=== PATIENT | female | born 1995 | race Hispanic/Latino ===

== ENCOUNTER 2019-01-04 19:50 | Emergency (ER) | payer SELFPAY ==
[~2019-01-04] VITALS: Ht 162.6 cm; Wt 61.2 kg
[2019-01-04] MEDS ORDERED: TRI-LO-MARZIA1 EACH PO (20:06)
[2019-01-04] MEDS ORDERED: PROTONIX40 MG PO (22:12)
[2019-01-04] MEDS ORDERED: ZOFRAN4 MG PO (22:12)
--- NOTE | 2019-01-05 15:04 | EKG ---
[facility] [address] [facility] [place], [place] [address] Signed Normal sinus rhythm Normal ECG No previous ECGs available Confirmed by MANSOOR HILL DO ([id number]) on 01/05/2019 3:04:29 PM Electronically Signed By: MANSOOR HILL DO 01/05/19 1504 PATIENT NAME: VASHTIROBIBETH Electrocardiogram DATE OF : [birth year] PHYSICIAN: MANSOOR HILL DO REPORT #: [id number] REPORT IS CONFIDENTIAL AND NOT TO BE RELEASED WITHOUT AUTHORIZATION
== END 2019-01-04 22:36 | disposition home or self-care (01) ==
LOC: ED 19:50
DX: R10.13 Epigastric pain (principal); D50.9 Iron deficiency anemia, unspecified
CPT/HCPCS: 80053; 81001; 83690; 84703; 85025; 85027; 93005; 93010; 96374; 96375; 99284-25; J1170; J2405

== ENCOUNTER 2019-01-09 09:56 | Observation (INO) | payer BC ==
[~2019-01-09] VITALS: Ht 162.6 cm; Wt 63.5 kg
[~2019-01-09 09:56] MED LIST: PROTONIX40 MG PO; TRI-LO-MARZIA1 EACH PO; ZOFRAN4 MG PO
--- OUTSIDE RECORDS SUMMARY | 2019-01-09 10:00 | XMS ---
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 Candida has no Care Guidelines for this patient. Juan VISIT COUNT (12 MO[address] [facility] [place] [facility]. TOTAL 2 NOTE: Visits indicate total known visits. ED/C VISIT TRACKING (12 MO.) 01/09/2019 09:57 [facility] [place] TYPE: Emergency COMPLAINT: - CHEST PAIN 01/04/2019 19:[address] [facility] [place] TYPE: Emergency COMPLAINT: - CHEST PRESSURE DIAGNOSES: - Iron deficiency anemia, unspecified - Epigastric pain INPATIENT VISIT TRACKING (12 MO.) No inpatient visits to display in this time frame [email or web address]
--- NOTE | 2019-01-09 13:00 | NUR ---
PT ARRIVED TO ROOM 114 AT THIS TIME, PT ALERT AND ORIENTED, PT RELAXED IN BED TALKING WITH BOYFRIEND AT BEDSIDE. PT UP TO BATHROOM INDEPENTENTLY.
--- NOTE | 2019-01-09 13:46 | NUR ---
pt reports no nausea and pain is well managed at this time, per pt no need for pain medication at this time, laying in bed on left side visiting with boyfriend and watching video on phone.
--- NOTE | 2019-01-09 13:58 | EKG ---
[facility] [address] [facility] [place] [address] Signed Normal sinus rhythm Confirmed by MANSOOR HILL DO ([id number]) on 01/09/2019 1:58:12 PM Electronically Signed By: MANSOOR HILL DO 01/09/19 1358 PATIENT NAME: JASSIROB HERZOG Electrocardiogram DATE OF : [birth year] PHYSICIAN: MANSOOR HILL DO REPORT #: [id number] REPORT IS CONFIDENTIAL AND NOT TO BE RELEASED WITHOUT AUTHORIZATION
--- NOTE | 2019-01-09 14:10 | NUR ---
ASSISTED PT TO BATHROOM AND DID ASSESSMENT. PT RATES PAIN MINIMALLY. STATES SHE STARTED TO FEEL BETTER IN THE ED. ASSESSMENT BENIGN.
--- NOTE | 2019-01-09 15:23 | NUR ---
CALLED TO REPORT THAT PT HAS CHRONIC LOW IRON ANEMIA AND HAS AN H/H OF 7.0/24.5, SAID TO HAVE TWO UNITS CROSS MATCHED AND ON HOLD FOR SURGERY.
--- NOTE | 2019-01-09 18:04 | NUR ---
PT OFF FLOOR WITH RN KALPANA FOR SURGERY. BOYFRIEND STAYING IN ROOM.
--- NOTE | 2019-01-09 18:09 | CONS ---
[facility] [address] [place], [place] [address] Signed DATE OF CONSULTATION: 01/09/2019 REFERRING PHYSICIAN: Dr. Orta. CHIEF COMPLAINT: Right upper quadrant abdominal pain/epigastric abdominal pain. HISTORY OF PRESENT ILLNESS: Rob is a 23-year-old female, otherwise healthy, except for chronic anemia for at least two years. She said her periods were quite irregular, but she went on control two years ago and it is much better. She tried iron tablets for a while, but she was noncompliant. 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 She is able to walk, talk, participate in activity and so forth and never gets tired or short of breath. However, the last week or so. She has had at least two attacks of significant right upper quadrant epigastric abdominal pain radiating through to her back. She came to emergency room about five days ago and was allowed to go home. No imaging was done previously. Today when she came, her blood work looks fine and her beta HCG is negative. So she consequently had an ultrasound of the gallbladder done and there was sludge with probably some tiny stones in the common bile duct which was unremarkable. No gallbladder wall thickening, no pericholecystic fluid. I was asked to admit her as a general surgeon on-call. In the meantime, she is doing fine. PAST MEDICAL HISTORY: Chronic iron deficiency anemia for two years, associated with irregular menses. PAST SURGICAL HISTORY: None. SOCIAL HISTORY: She does not smoke or drink. Her mother, at [phone]. She sees Anthony Gandhi at [facility]. 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 FAMILY HISTORY: All healthy. REVIEW OF SYSTEMS: Ten systems reviewed, nothing new to add. ALLERGIES: None. MEDICATIONS: Electronically Signed By: CY REEDER MD 01/09/19 1939 PATIENT NAME: ROB KINGSTON CONSULTATION DATE OF : [birth year] REPORT #: [id number] PHYSICIAN: CY REEDER MD PCP: NO PRIMARY CARE PHYSICIAN REPORT IS CONFIDENTIAL AND NOT TO BE RELEASED WITHOUT AUTHORIZATION [facility] [address] [place], [place] [address] Signed Protonix, Zofran, and oral contraceptive pill. PHYSICAL EXAMINATION: VITAL SIGNS: Her blood pressure 122/67, heart rate 77, respiratory rate 16, temperature 97.6. She is 99% on room air. She is 5 feet 4 inches, 63 kg. GENERAL: Rob is a 23-year-old female lying supine in her hospital bed. She appears healthy and at her stated age. Her boyfriend is in the room. She does not appear systemically ill or toxic. She is not jaundiced. LUNGS: Generally clear to auscultation bilaterally. HEART: Regular rate and rhythm. ABDOMEN: Soft and nontender at this time. LABORATORY DATA: Her white blood cell count is 5.6, hemoglobin 7.0, mean cell volume 65, neutrophils 70. BUN 8, creatinine 0.48. EKG shows some sinus arrhythmias. The beta-HCG is negative. Total bilirubin 0.5, AST 18, ALT 19, alkaline phosphatase 66, lipase 7, albumin is 4.3. RADIOGRAPHIC STUDIES: Ultrasound of the gallbladder was performed and it shows some sludge and probably some tiny stones but an unremarkable common bile duct. No pericholecystic fluid. No gallbladder wall thickening. ASSESSMENT AND PLAN: Rob is a 23-year-old female, who presents with sludge in the gallbladder, probably some stones and a classic biliary colic. She has been admitted given IV fluids. I met with her and explained her the above findings. We reviewed the location and function of the gallbladder. We reviewed laparoscopic versus open cholecystectomy. They understand expected intraop and postop course. We did review the risks including, but not limited to bleeding, infection, scarring, change in contour of the skin, damage to bowel, damage to main bile duct, and incisional hernias. In the meantime, we will give her some antibiotics and heparin. Will be headed to the OR shortly. They have expressed understanding and would like to proceed. yC Reeder MD ALB/MODL /[id number] Electronically Signed By: CY REEDER MD 01/09/19 1809 PATIENT NAME: ROB KINGSTON CONSULTATION DATE OF : [birth year] REPORT #: [id number] PHYSICIAN: CY REEDER MD PCP: NO PRIMARY CARE PHYSICIAN REPORT IS CONFIDENTIAL AND NOT TO BE RELEASED WITHOUT AUTHORIZATION [address] [address] Signed cc: CLARITA Arizmendi MD Copies: ANTHONY GANDHI ANDREW L MD ~ Electronically Signed By: CY REEDER MD 01/09/19 1809 PATIENT NAME: ROB KINGSTON ELLE CONSULTATION DATE OF : [birth year] REPORT #: [id number] PHYSICIAN: CY REEDER MD PCP: NO PRIMARY CARE PHYSICIAN REPORT IS CONFIDENTIAL AND NOT TO BE RELEASED WITHOUT AUTHORIZATION
--- NOTE | 2019-01-09 18:13 | NUR ---
PT FELT BETTER AFTER BOLUS IN ED. NO PRN MEDICATIONS GIVEN ON FLOOR. INDEPENDENT IN ROOM.
--- NOTE | 2019-01-09 19:26 | NUR ---
01/09/191925 Cristin Gutierrez 1918 PT ARRIVED TO PACU ON 10L VIA MASK, PT NONAROUSABLE TO PAINFUL STIMULI. PT HAS ORAL AIRWAY IN PLACE, RESP EVEN AND UNLABORED.
--- NOTE | 2019-01-09 20:14 | NUR ---
PT RETURNED FROM PACU, SLEEPY BUT WAKES EASILY. REQUIRED STAFF TO PULL HER OVER TO BED FROM STRETCHER, BUT ONCE IN BED, SHE REQUESTED TO GET UP AND USE BATHROOM. REQUIRED SOME ASSISTANCE GETTING UP BUT AMBULATED TO BATHROOM WITH SBA. COMPLAINS OF DISCOMFORT IN SURGERY SITE. AMBULATED BACK TO BED INDEPENDENTLY. MALE FRIEND IN ROOM.
--- NOTE | 2019-01-09 20:25 | NUR ---
PT TO FLOOR FROM PACU VIA STRETCHER. PT DROWSY BUT AWAKENS EASILY. REPORT RECEIVED FROM PACU NURSE. ASSESSMENT COMPLETE. PT DENIES PAIN OR NAUSEA. SURVEY RESEARCH CENTER DIRECTOR IN ROOM. CALL LIGHT IN REACH.
--- NOTE | 2019-01-09 21:40 | NUR ---
PATIENTS POST-OP VITALS TAKEN AND RECORDED. PATIEN DENIES ANY PAIN OR NAUSEA. PATIENT DENIES ANY NEEDS. FAMILY REMAINS IN THE ROOM.
--- NOTE | 2019-01-09 22:05 | NUR ---
PT CALLED NEEDED TO USE BATHROOM. ASSISTED UP, AMBULATED SELF, DENIES NAUSEA, ABLE TO GET SELF BACK INTO BED. FAMILY IN ROOM.
--- NOTE | 2019-01-09 22:44 | NUR ---
PT RESTING IN BED WITH EYES CLOSED. SLEEPY BUT AWAKENS EASILY. POST-OP VS DONE. PT DENIES PAIN OR NAUSEA. SIGNIFICANT OTHER IN THE ROOM. CALL LIGHT IN REACH.
--- NOTE | 2019-01-10 00:09 | NUR ---
PT UP TO BR WITH SBA TO VOID 550 ML CLEAR YELLOW URINE. PT BACK TO BED. ICE PACK TO ABD. PT DENIES PAIN OR NAUSEA. SCOPE SITES CDI. PT EATING JELLO. NO OTHER REQUESTS AT THIS TIME. CALL LIGHT IN REACH.
--- NOTE | 2019-01-10 02:20 | NUR ---
PT UP TO BR WITH MINIMAL ASSIST. PT C/O WORSENING PAIN WITH MOVEMENT AND AMBULATION. PRN PAIN MEDICATION AND CRACKERS GIVEN FOR C/O 8/10 ABDOMINAL PAIN. ASSESSMENT COMPETE. SIGNIGICANT OTHER IN THE ROOM. CALL LIGHT IN REACH.
--- NOTE | 2019-01-10 05:00 | NUR ---
PT RESTING IN BED WITH EYES CLOSED. RR EVEN AND UNLABORED. SCD'S IN PLACE. CALL LIGHT IN REACH.
--- NOTE | 2019-01-10 05:46 | NUR ---
PT RESTED WELL THROUGHOUT THE SHIFT. SCOPE SITES CDI, ICE PACK TO LOWER ABDOMEN. PT REPORTS MINIMAL PAIN, STATES PAIN INCREASES WITH AMBULATION. MEDICATED ONCE WITH PO PAIN MED. EMPERATRIZ CRACKERS AND JELL-O WITH NO C/O NAUSEA. VOIDING QUANTITY SUFFICIENT.
--- NOTE | 2019-01-10 06:05 | OR ---
[facility] [address] [place], [place] [address] Signed DATE OF OPERATION: 01/09/2019 SURGEON: Cy Reeder MD PREOPERATIVE DIAGNOSES: 1. Cholecystitis, cholelithiasis and sludge. 2. Biliary colic. POSTOPERATIVE DIAGNOSES: 1. Acute cholecystitis, cholelithiasis and sludge. 2. Biliary colic. PROCEDURE PERFORMED: Laparoscopic cholecystectomy without intraoperative cholangiogram. ESTIMATED BLOOD LOSS: None. FINDINGS: Rob had 8 small 2-3 mm clear colored gallstones, one of which was stuck in the cystic duct next to the gallbladder and it was easily taken out. We were unable to pass the intraoperative cholangiocatheter through the valves of Stokes and therefore the intraoperative cholangiogram was abandoned. INDICATIONS: Rob is a 23-year-old female, otherwise healthy except she has had anemia for at least two years. She was having trouble with her monthly cycles and ended up on control. She said it is much better. However, she has remained anemic with a hemoglobin of 7. They had given her some iron pills, but she was never very compliant. She came to our ER twice in the last five days with significant epigastric abdominal pain radiating through to her back. Vital signs were fine and her laboratory work was fine, but the ultrasound showed sludge and some tiny stones in the gallbladder. The common bile duct was unremarkable. I was therefore asked to admit her as a general surgeon on-call. In the meantime, she has received IV fluids, antibiotics, heparin, and pain control. I met with Rob and her boyfriend here in the hospital. We reviewed the above findings. I explained to them the location and function of the gallbladder. We had reviewed laparoscopic versus open cholecystectomy. They understand there is risk to surgery including, but not limited to bleeding, infection, scarring, change in contour of the skin, damage to bowel, damage to main bile duct, and incisional hernias. I also explained that of all patients who come to us with gallstones that 3% to 7% will Electronically Signed By: CY REEDER MD 01/10/19 0605 PATIENT NAME: ROB KINGSTON OPERATIVE REPORT DATE OF : [birth year] REPORT #: [id number] PHYSICIAN: CY REEDER MD PCP: NO PRIMARY CARE PHYSICIAN REPORT IS CONFIDENTIAL AND NOT TO BE RELEASED WITHOUT AUTHORIZATION [facility] [address] [place], [place] [address] Signed have stones down in the main bile duct. They had expressed understanding and wished to proceed. PROCEDURE NOTE: Rob was taken into the operating room and placed in the supine position under general endotracheal tube anesthesia. She was given her preoperative antibiotics along with subcutaneous heparin. SCDs were utilized. She was then prepped and draped in the usual sterile fashion. We used a standard vertical midline infraumbilical incision and carried it down through bluntly and with the cautery. The Kary trocar was placed under direct visualization without difficulty. The abdomen was insufflated and the camera was introduced. The remaining trocars were then placed under direct visualization without difficulty. The gallbladder was grasped and elevated into the right upper quadrant. Pictures were taken throughout for photodocumentation. We could immediately see that the gallbladder wall was a bit thickened and edematous. The triangle of Calot was dissected free and a clip was placed on the cystic artery and it was divided. We opened the neck of the gallbladder as it joined the cystic duct. One small stone had been brought out. We milked the cystic duct and no additional stones were palpated or obtained. We could not pass our intraoperative cholangiocatheter through the valves of Stokes. Therefore, we abandoned the intraoperative cholangiogram. The cystic duct stump was secured with a PDS Endoloop and 2 clips were placed on the cystic duct stump to arnaldo its location. After this, the gallbladder was removed from the gallbladder fossa with the help of the cautery. There was a moderate amount of edema as we worked our way through. The gallbladder was then placed into an EndoCatch bag. The right upper quadrant was irrigated and suctioned out until clear. We used our laparoscopic suturing device to pass 0 Vicryl suture on either side of the fascia of the subxiphoid trocar site. This was tied down to close this fascia primarily. After this, the gas was allowed to escape and all the trocars were removed along with the gallbladder. The gallbladder was opened on the back table by our circulating nurse. She had 8 small 2 to 3 mm clear gallstones. The fluid in the gallbladder had been clear as well. She had an obstruction right at the neck of the gallbladder joining the cystic duct. The gallbladder wall was clearly thickened and edematous. After this, we closed the infraumbilical trocar site fascia with interrupted simple and [id number] 0 Vicryl sutures. Local anesthetic was copiously injected into all trocar sites. Each trocar site was irrigated and suctioned out until clear. The skin and dermis of each trocar site were closed with interrupted 3-0 subcuticular Monocryl sutures. Dry gauze and tape were applied to all incisions. After this, Rob was awakened from her anesthesia, extubated in the OR, and taken to recovery room in stable condition. Cy Reeder MD Electronically Signed By: CY REEDER MD 01/10/19 0605 PATIENT NAME: ROB KINGSTON OPERATIVE REPORT DATE OF : [birth year] REPORT #: [id number] PHYSICIAN: CY REEDER MD PCP: NO PRIMARY CARE PHYSICIAN REPORT IS CONFIDENTIAL AND NOT TO BE RELEASED WITHOUT AUTHORIZATION [address] [place] [address] Signed ALB/MODL /[id number] cc: CLARITA Arizmendi MD Copies: ANTHONY GANDHI ANDREW L MD ~ Electronically Signed By: CY REEDER MD 01/10/19 0605 PATIENT NAME: ROB KINGSTON OPERATIVE REPORT DATE OF : [birth year] REPORT #: [id number] PHYSICIAN: CY REEDER MD PCP: NO PRIMARY CARE PHYSICIAN REPORT IS CONFIDENTIAL AND NOT TO BE RELEASED WITHOUT AUTHORIZATION
--- NOTE | 2019-01-10 07:25 | NUR ---
PATIENT IS NOW SL PER MD ORDER.
--- NOTE | 2019-01-10 07:30 | NUR ---
REPORT RECEIVED FROM TESHA CORCORAN. PT APPEARS TO BE ASLEEP AND REPORTEDLY HAD A GOOD NIGHT. BOYFRIEND ON COUCH.
--- NOTE | 2019-01-10 08:08 | NUR ---
PATIENT IN BED RESTING WITH EYES CLOSED. CALL LIGHT IN REACH. NO FURTHER NEEDS AT THIS TIME.
[2019-01-10] MEDS ORDERED: NORCO 5-325 TA1 EACH PO (09:19)
--- NOTE | 2019-01-10 09:40 | NUR ---
PT AWAKE AND ASKING FOR SOUP. STATES THAT HER PAIN IS MINIMAL AND ONLY WANTS ONE NORCO. TALKED ABOUT JUST TAKING TYLENOL AT HOME IF THAT IS WHAT SHE WANTS BUT NOT WITH THE NORCO. GIVEN SOUP AND TOLD THAT SHE CAN GET DRESSED AT HER [facility].
--- NOTE | 2019-01-10 09:40 | NUR ---
MED REC COMPLETE
[2019-01-10] MEDS ORDERED: TYLENOL325 MG PO (09:41)
[2019-01-10] MEDS ORDERED: ADVIL200 MG PO (09:42)
[2019-01-10] MEDS ORDERED: ALEVE220 MG PO (09:42)
--- NOTE | 2019-01-10 10:05 | NUR ---
PATIENT IN BED RESTING, VISITOR IN ROOM. CALL LIGHT IN REACH. TOOTH BRUSH AND TOOTH PSTE PROVIDED. NO FURTHER NEEDS AT THIS TIME.
--- NOTE | 2019-01-10 10:49 | NUR ---
pt education provided. pt has decided she would like the second norco before leaving as riding in the car is painful.
== END 2019-01-10 11:36 | disposition home or self-care (01) ==
LOC: ED 09:56 → MS 09:58
PROVIDERS: ADMIT Colon & Rectal Surgery
PROC: 0FT44ZZ Resection of Gallbladder, Percutaneous Endoscopic Approach (ICD-10-PCS; principal; 2019-01-09 17:30)
DX: K80.12 Calculus of gallbladder with acute and chronic cholecystitis without obstruction (principal); D50.9 Iron deficiency anemia, unspecified; Z79.3 Long term (current) use of hormonal contraceptives; Z79.899 Other long term (current) drug therapy
CPT/HCPCS: 00790; 36415; 76705; 80053; 83690; 84703; 85025; 86850; 86900; 86901; 86920; 93005; 93010; 94760; 96361; 96372; 96374; 96375; 96376; 99285-25; G0378; J0330; J0696; J1100; J1170; J1644; J1885; J2250; J2405; J2704; J2765; J3010; J7030; J7120

== ENCOUNTER 2019-06-18 04:28 | Emergency (ER) | payer BC ==
[~2019-06-18] VITALS: Ht 162.6 cm; Wt 59.0 kg
[~2019-06-18 04:28] MED LIST changes: +ADVIL200 MG PO; +ALEVE220 MG PO; +NORCO 5-325 TA1 EACH PO; +TYLENOL325 MG PO
[2019-06-18] MEDS ORDERED: PROTONIX40 MG PO (06:07)
== END 2019-06-18 06:17 | disposition home or self-care (01) ==
LOC: ED 04:28
DX: K29.00 Acute gastritis without bleeding (principal); Z79.899 Other long term (current) drug therapy
CPT/HCPCS: 80053; 81001; 83690; 84703; 85025; 99284

== ENCOUNTER 2024-06-30 00:51 | Inpatient (IN) | payer BC ==
[2024-06-30] MEDS ORDERED: MAGNESIUM HYDROXIDE/AL HYDROX 30 ML CUP PO PRN ×2 (01:00→21:45)
[2024-06-30] MEDS ORDERED: LACTATED RINGER'S 1,000 ML IV SCH (01:00)
[2024-06-30] MEDS ORDERED: OXYTOCIN/DEXTROSE 5% 20 UNITS/100 ML BAG IV SCH (01:00)
[2024-06-30] MEDS ORDERED: miSOPROStoL 25 MCG TAB PV SCH (01:00)
[2024-06-30] MEDS ORDERED: LACTATED RINGER'S 1,000 ML IV PRN (01:00)
[2024-06-30] MEDS ORDERED: CALCIUM CARBONATE 500 MG CHEW PO PRN ×2 (01:00→21:45)
[2024-06-30 01:29] LABS: HEMATOCRIT 30.9 % (35.0-50.0); MCH 24.6 (27-36); MCHC 32.3 g/dl (30-36); MCV 76.3 fl (81-99); RBC 4.05 M/ul (4.3-5.7); RDW 18.1 (10.5-15.0)
[2024-06-30 01:46] LABS: AMPHETAMINES, URINE NEGATIVE (NEGATIVE); BARBITURATES, URINE NEGATIVE (NEGATIVE); BENZODIAZEPINE, URINE NEGATIVE (NEGATIVE); BUPRENORPHINE, URINE NEGATIVE (NEGATIVE); CANNABINOID, URINE NEGATIVE (NEGATIVE); COCAINE, URINE NEGATIVE (NEGATIVE); ECSTASY, URINE NEGATIVE (NEGATIVE); FENTANYL, URINE NEGATIVE (NEGATIVE); METHADONE, URINE NEGATIVE (NEGATIVE); OPIATES, URINE NEGATIVE (NEGATIVE); OXYCODONE, URINE NEGATIVE (NEGATIVE); PHENCYCLIDINE, URINE NEGATIVE (NEGATIVE)
[2024-06-30 02:04] LABS: ABO A; ANTIBODY SCREEN NEGATIVE; RH POSITIVE
[2024-06-30 06:30] LABS: AMNISURE ROM TEST POSITIVE
[2024-06-30] MEDS ORDERED: PENICILLIN G POTASSIUM 5 MUNITS/110 ML PIGGYBACK IV ONE (08:00)
[2024-06-30] MEDS ORDERED: OXYTOCIN/0.9 % SODIUM CHLORIDE 500 ML IV SCH ×2 (08:45→21:45)
[2024-06-30] MEDS ORDERED: BUPIVACAINE HCL 0.25% 10 ML SDV INJ ONE (09:06)
[2024-06-30] MEDS ORDERED: ROPIVACAINE 0.2% 200 ML BAG ONE (09:06)
[2024-06-30] MEDS ORDERED: LIDOCAINE HCL 2% 5 ML SDV ONE (09:06)
[2024-06-30] MEDS ORDERED: dexmedeTOMIDine HCl 200 MCG/2 ML VIAL ONE (09:06)
[2024-06-30] MEDS ORDERED: LACTATED RINGER'S 500 ML IV PRN (10:00)
[2024-06-30] MEDS ORDERED: ePHEDrine sulfate 5 MG/ML SYRINGE IV PRN (10:00)
[2024-06-30] MEDS ORDERED: LACTATED RINGER'S 2,000 ML IV ONE (10:00)
[2024-06-30] MEDS ORDERED: ROPIVACAINE 0.2% 200 ML BAG EPIDURAL SCH ×2 (10:00)
[2024-06-30] MEDS ORDERED: PENICILLIN G POTASSIUM 2.5 MUNITS in DEXTROSE 5% 100 ML IV SCH (12:00)
[2024-06-30] MEDS ORDERED: ondansetron HCL 4 MG/2 ML VIAL IV PRN (14:00)
[2024-06-30] MEDS ORDERED: HYDROCODONE/ACETA 5/325 TAB PO PRN (21:45)
[2024-06-30] MEDS ORDERED: HYDROCORTISONE ACETATE 25 MG SUPP PR PRN (21:45)
[2024-06-30] MEDS ORDERED: BENZOCAINE 60 ML AEROSOL TOP PRN (21:45)
[2024-06-30] MEDS ORDERED: diphenhydrAMINE HCL 25 MG CAP PO PRN (21:45)
[2024-06-30] MEDS ORDERED: MAGNESIUM HYDROXIDE 30 ML UDC PO PRN (21:45)
[2024-06-30] MEDS ORDERED: ACETAMINOPHEN 325 MG TAB PO PRN (21:45)
[2024-06-30] MEDS ORDERED: IBUPROFEN 600 MG TAB PO PRN (21:45)
[2024-06-30] MEDS ORDERED: WITCH HAZEL/GLYCERIN 1 EA PAD TOP PRN (21:45)
[2024-07-01 05:13] LABS: HEMATOCRIT 28.3 % (35.0-50.0); HEMOGLOBIN 9.3 g/dL (12.0-18.0); MCH 24.9 (27-36); MCHC 32.8 g/dl (30-36); MCV 75.8 fl (81-99); RBC 3.74 M/ul (4.3-5.7); RDW 18.4 (10.5-15.0)
[2024-07-01] MEDS ORDERED: SENNOSIDES/DOCUSATE 1 EA TAB PO SCH (09:00)
== END 2024-07-02 13:53 | disposition home or self-care (01) | DRG 807 ==
LOC: FBC 00:51 → FBCO 07:13 → EDSTATUS 13:01 → FBC 15:04
PROVIDERS: Obstetrics & Gynecology; ADMIT Obstetrics & Gynecology; ATTEND Obstetrics & Gynecology
PROC: 10E0XZZ Delivery of Products of Conception, External Approach (ICD-10-PCS; principal; 2024-06-30)
PROC: 0UQMXZZ Repair Vulva, External Approach (ICD-10-PCS; 2024-06-30)
PROC: 3E0P7VZ Introduction of Hormone into Female Reproductive, Via Natural or Artificial Opening (ICD-10-PCS; 2024-06-30)
DX: O48.0 Post-term pregnancy (principal); Z37.0 Single live birth; Z3A.40 40 weeks gestation of pregnancy; O70.0 First degree perineal laceration during delivery; D56.3 Thalassemia minor; O99.892 Other specified diseases and conditions complicating childbirth; O99.824 Streptococcus B carrier state complicating childbirth
CPT/HCPCS: 01960; 36415; 80307; 84112; 85027; 86850; 86900; 86901; A9270; J2003; J2405; J2540; J2590; J2795; J7121

== ENCOUNTER 2025-07-05 10:36 | Inpatient (IN) | payer OTHER | END 2025-07-07 12:15 | disposition home or self-care (01) | DRG 806 | LOC: FBCO 10:36 → FBC 16:46 → MS 07-06 16:09 → FBC 07-06 16:28 | PROVIDERS: ADMIT Obstetrics & Gynecology | PROC: 10E0XZZ Delivery of Products of Conception, External Approach (ICD-10-PCS; principal; 2025-07-05) | PROC: 3E0R3BZ Introduction of Anesthetic Agent into Spinal Canal, Percutaneous Approach (ICD-10-PCS; 2025-07-05) | PROC: 00HU33Z Insertion of Infusion Device into Spinal Canal, Percutaneous Approach (ICD-10-PCS; 2025-07-05) | PROC: 3E03329 Introduction of Other Anti-infective into Peripheral Vein, Percutaneous Approach (ICD-10-PCS; 2025-07-05) | DX: O99.824 Streptococcus B carrier state complicating childbirth (principal); D62 Acute posthemorrhagic anemia; Z37.0 Single live birth; O99.62 Diseases of the digestive system complicating childbirth; K42.9 Umbilical hernia without obstruction or gangrene; Z3A.38 38 weeks gestation of pregnancy ==